=== PATIENT | male | born 1970 | race American Indian/Alaskan Native ===

== ENCOUNTER 2016-11-20 21:25 | Emergency (ER) | payer OTHER ==
[2016-11-20 22:33] LABS: Basophils % (Auto) 0.9 % (0.0-1.8); Eosinophils % (Auto) 3.5 % (0.0-4.3); Hematocrit 35.5 % (35.5-45.6); Mean Corpuscular HGB Conc 34 % (32-34); Mean Corpuscular Hemoglobin 34 pg (28-32); Mean Corpuscular Volume 100 fl (84-94); Platelet Count 276 K/mm3 (140-440); Red Blood Count 3.57 M/mm3 (3.65-5.03); Red Cell Distribution Width 13.8 % (13.2-15.2); White Blood Count 6.9 K/mm3 (4.5-11.0)
[2016-11-20] MEDS ORDERED: VITAMIN B-1 100 MG, FOLVITE 1 MG, INFUVITE 10 ML in NACL 0.9% 1000 ML 1,000 ML IV ONE (22:44)
[2016-11-20 22:49] LABS: Urine Drugs of Abuse Note Disclamer
[2016-11-20 22:49] LABS: Anion Gap 21 mmol/L; Blood Urea Nitrogen 16 mg/dL (9-20); Calcium 8.4 mg/dL (8.4-10.2); Carbon Dioxide 24 mmol/L (22-30); Chloride 101.3 mmol/L (98-107); Glucose 85 mg/dL (75-100); Potassium 4.1 mmol/L (3.6-5.0); Sodium 142 mmol/L (137-145)
[2016-11-20 22:58] LABS: Bilirubin,Urine NEG (Negative); Blood,Urine SM (Negative); Ketones,Urine NEG (Negative); Leukocyte Esterase,Urine NEG (Negative); Nitrite,Urine NEG (Negative); Protein,Urine <15 mg/dL mg/dL (Negative); RBC,Urine < 1.0 /HPF (0.0-6.0); Urobilinogen,Urine < 2.0 mg/dL (<2.0)
[2016-11-20 22:59] LABS: WBC,Urine < 1.0 /HPF (0.0-6.0)
--- NOTE | 2016-11-20 23:19 | Emergency Department Report ---
HPI - General Chief Complaint: Seizure Time Seen by Provider: 11/21/16 00:09 - HPI HPI: The patient is a 46-year-old male who presents for evaluation status post seizure. Patient reports lightheadedness for the past one - 2 hours since experiencing a seizure. Per EMS associates of the patient found the patient exhibiting seizure-like activity approximately 2 hours prior to arrival. Patient states that his lightheadedness was severe, worsened with sitting up or standing, improved with lying flat, constant since onset. He admits to significant alcohol consumption earlier today. The patient denies fever, headache, neck pain, paresthesias, focal motor weakness, blurry vision, ear pain , tinnitus, chest pain, hemoptysis, dyspnea, abdominal pain, or other focal neurological deficit. ED Past Medical Hx - Past Medical History Previous Medical History?: Yes Hx Seizures: Yes Additional medical history: ETOH - Social History Smoking Status: Current Every Day Smoker Substance Use Type: Alcohol - Medications Home Medications: Home Medications Medication Instructions Recorded Confirmed Last Taken Type Unobtainable 11/20/16 11/20/16 Unknown History ED Review of Systems ROS: Stated complaint: ETOH Other details as noted in HPI Constitutional: reports lightheadedness denies: fever ENT: denies: throat or neck pain Respiratory: denies: cough, shortness of breath Cardiovascular: denies: chest pain Endocrine: denies unexplained weight loss or gain Gastrointestinal: denies: abdominal pain, nausea Genitourinary: denies: dysuria Musculoskeletal: denies: leg swelling Skin: denies: rash Neurological: denies: headache Hematological/Lymphatic: denies: easy bleeding or easy bruising Psych: denies sadness or hopelessness Physical Exam - Physical Exam Vital Signs: Vital Signs 11/20/16 11/20/16 22:00 22:50 Temperature 98.2 F Pulse Rate 83 Respiratory 18 20 Rate Blood Pressure 128/79 O2 Sat by Pulse 98 98 Oximetry Physical Exam: General: well-nourished, well-developed, smells of alcohol Head: Normocephalic, atraumatic Eyes: normal sclera ENT: Mucous membranes are pale and dry Neck: trachea midline, neck supple, No neck stiffness, no cervical adenopathy Respiratory: Breath sounds equal bilaterally, no wheezing, rales, or rhonchi Cardio: S1 and S2 present, no murmurs, rubs, gallops, capillary refill is delayed Abdomen: Normoactive bowel sounds, soft abdomen, no tenderness Chest WALL/Back: No tenderness to palpation of the chest wall, no CVA tenderness with percussion Musc: No pitting edema Skin: No rash Neuro: Patient drowsy, easily arousable to tactile stimuli, gag reflex intact, protecting airway, no facial drooping, mildly slurred speech, Psych: Normal affect ED Course Vital Signs 11/20/16 11/20/16 22:00 22:50 Temperature 98.2 F Pulse Rate 83 Respiratory 18 20 Rate Blood Pressure 128/79 O2 Sat by Pulse 98 98 Oximetry ED Medical Decision Making - Lab Data Result diagrams: 11/20/16 22:17 11/20/16 22:17 - Medical Decision Making The patient was seen and examined by myself. The patient is placed on a school lunch monitor and continuous pulse ox. On initial evaluation, the patient was found to be in no distress. Evaluation orders were placed. Lab results reveal significantly elevated alcohol level of .39. The patient is given a banana bag infusion for treatment of his dehydration. The patient reevaluated and remains drowsy. CT scan the head is ordered. The patient will be monitored in the emergency department until sober and alcohol level has returned to normal. The patient was signed out to the flotation tender helper physician Dr. San, who agreed to follow-up on pending CT scan of the head and to arrange alternate disposition once the patient is sober. Critical care attestation.: If time is entered above; I have spent that time in minutes in the direct care of this critically ill patient, excluding procedure time. ED Disposition Clinical Impression: Dehydration Alcohol intoxication Qualifiers: Complication of substance-induced condition: with delirium Qualified Code(s): F10.921 - Alcohol use, unspecified with intoxication delirium Altered mental status Qualifiers: Altered mental status type: delirium Qualified Code(s): R41.0 - Disorientation , unspecified Disposition: -01 TO HOME OR SELFCARE Is pt being admited?: No Does the pt Need Aspirin: No Condition: Stable Referrals: PRIMARY CARE, [Primary Care Provider] - 3-5 Days Time of Disposition: 01:12
--- NOTE | 2016-11-21 03:46 | Cat Scan Report ---
FINAL REPORT PROCEDURE: CT HEAD/BRAIN WO CON TECHNIQUE: Computerized tomography of the head was performed without contrast material. HISTORY: headache COMPARISON: No prior studies are available for comparison. FINDINGS: Skull and scalp: Normal. Paranasal sinuses: Normal. Ventricles and subarachnoid spaces: Normal. Cerebrum: No evidence of hemorrhage, acute infarction or mass . Cerebellum and brainstem: No evidence of hemorrhage, acute infarction or mass. Vasculature: Normal. Comments: None. IMPRESSION: There is no evidence of an acute intracranial process
[2016-11-21 13:45] VITALS: BP 114/72
== END 2016-11-21 12:12 | disposition home or self-care (01) ==
LOC: ED 21:25
DX: E86.0 Dehydration (principal); F10.921 Alcohol use, unspecified with intoxication delirium; R41.0 Disorientation, unspecified; F17.200 Nicotine dependence, unspecified, uncomplicated
CPT/HCPCS: 36415; 70450; 80048; 80307; 81001; 85025; 93005; 93010; 96365; 96366; 99285; G0480; J3411; J7030; 80320